=== PATIENT | female | born 2005 | race Caucasian/White ===

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

== ENCOUNTER 2025-04-12 01:35 | Emergency (ER) | payer MEDICAID ==
[~2025-04-12] VITALS: Ht 165.1 cm; Wt 56.2 kg
[~2025-04-12 01:35] MED LIST changes: +DOXY100T29 PO
--- NOTE | 2025-04-12 02:17 | Physician Documentation ---
HPI ~ General Chief Complaint: Tooth Problem Stated Complaint: ORAL PAIN Time Seen by MD: 02:16 Primary Medical Doctor: TERRIE AT [facility] IN [place] Mode of Arrival: POV History of Present Illness HPI Comment Patient presents to the emergency room with dental pain since tonight. Patient does see forging die sinker with braces however she has not been to a dentist in some time. Last time she was at a dentist that has for a cracked tooth on her right lower molar and she states they drilled a hole in it but then was told to come back to finish working on the tooth but she failed to follow up. She has had nothing for the pain Medication Reconciliation Allergies: Coded Allergies: No Known Allergies (Unverified , 04/12/25) Scheduled Amoxicillin Trihydrate* (Amoxicillin*), 1 CAP PO Q12H Doxycycline Monohydrate (Doxycycline Monohydrate), 1 TAB PO Q12H Ibuprofen* (Motrin*), 800 MG PO Q8H Scheduled PRN Acetaminophen (Tylenol Extra Strength), 2 TAB PO Q6H PRN PRN for pain or fever Miscellaneous Medications Home Med List (No Home Medications), (Reported) Past Medical History Past Medical History: *ENT* Past Surgical History: no surgical history Alcohol Use: None Drug Use: none Lives with: Family Lives In: Home Occupation: child Review of Systems ROS All review of systems negative except as per HPI Physical Exam Vital Signs: Temperature: 97.9, Source: Temporal, Heart Rate: 86, Respiratory Rate: 14, BP: 117/74, Pulse Oximetry: 98, Weight: 56.200 Oxygen Flow Rate: 0 Physical Exam General: Patient is awake, alert, oriented x4 in no acute distress Head: Normocephalic and atraumatic. Eyes: Conjunctival normal. EOMI. PERRL. ENT: Mucous membranes moist. Abscess noted to patient's right lower molar. Neck: Supple, trachea is midline. Chest: Clear to auscultation bilaterally without rales, rhonchi, or wheezes. There is no accessory muscle use or retractions. Cardiac: RRR without murmurs, gallops, or rubs. Procedures Procedures Incision and drainage: Status post informed verbal consent patient was anesthetized with 1 cc of lidocaine with epinephrine to the root of affected right lower molar. 11. Blade utilized to perform incision and drainage with purulence and blood expressed totaling a total of 0.5 cc. Patient tolerated procedure well without complication. Total time of procedure 5 minutes Progress Results/Orders Results/Orders Completed Orders - GREY VU MD Ibuprofen Tablet (Motrin Tablet) (04/12/25 02:20) Acetaminophen 325mg Tablet (Tylenol Tabl (04/12/25 02:20) Ondansetron Disint. Tablet (Zofran Odt T (04/12/25 02:20) Amoxicillin Capsule (Trimox Capsule) (04/12/25 02:20) Medications Received in ER Medications (Trade) Dose Ordered Sig/Lela Route PRN Reason Start Time Stop Time Status Last Admin Dose Admin (Motrin tablet) 400 mg ONCE ONCE PO 04/12/25 02:20 04/12/25 02:21 DC 04/12/25 02:35 400 MG (Tylenol tablet) 650 mg ONCE ONCE PO 04/12/25 02:20 04/12/25 02:21 DC 04/12/25 02:35 650 MG (Zofran ODT tablet) 4 mg ONCE ONCE PO 04/12/25 02:20 04/12/25 02:21 DC 04/12/25 02:34 4 MG (Trimox capsule) 500 mg ONCE ONCE PO 04/12/25 02:20 04/12/25 02:21 DC 04/12/25 02:34 500 MG Vital Signs 04/12/25 04/12/25 01:37 02:08 Temp 97.9 Pulse 86 Resp 16 14 B/P (MAP) 117/74 Pulse Ox 98 O2 Flow Rate 0 Medical Decision Making Findings Patient presented to the emergency room for evaluation of dental pain. Differentials include but are not limited to abscess, referred pain, herpangina, dental caries. Physical exam consistent with abscess and incision and drainage was performed without issue. The need to follow up with a dentist discussed. Departure Disposition: 01 HOME / SELF CARE / HOMELESS Impression: Primary Impression: Toothache Additional Impression: Dental abscess Condition: Stable Discharge Instructions: Dental Pain Additional Instructions: Call dentist tomorrow to arrange for follow up. Finish all antibiotics. Both ibuprofen and Tylenol may be taken together for pain. Referrals: NO PRIMARY CARE PROVIDER (PCP) Prescriptions Acetaminophen (Tylenol Extra Strength) 500 Mg Tablet 2 TAB PO Q6H PRN PRN for pain or fever for 3 Days, #30 TAB Prov: GREY VU MD 04/12/25 Ibuprofen* (Motrin*) 400 Mg Tablet 800 MG PO Q8H, #30 TAB Prov: GREY VU MD 04/12/25 Amoxicillin Trihydrate* (Amoxicillin*) 500 Mg Capsule 1 CAP PO Q12H for 10 Days, #20 CAP Prov: GREY VU MD 04/12/25 Education Educated: Patient Educated regarding: diagnosis, treatment, need for follow up Signature Scribe Signature: No scribe Attestation: The note accurately reflects work and decisions made by me.Grey Vu MD 04/12/25 02:33 GREY VU MD Apr 12, 2025 02:17
[2025-04-12] MEDS ORDERED: ACET-1025 PO (02:33)
[2025-04-12] MEDS ORDERED: AMOX500C2 PO (02:33)
[2025-04-12] MEDS ORDERED: IBUP-1984 PO (02:33)
[2025-04-12] MEDS: ondansetron 4mg rapidly disintigrating tab PO ONE (02:34)
[2025-04-12] MEDS: ibuprofen tablet 400 MG TABLET PO ONE (02:35)
[2025-04-12 02:49] VITALS: BP 112/64; PULSE 68; RESP 14; TEMP 97.9; O2SAT 99
== END 2025-04-12 02:51 | disposition home or self-care (01) ==
LOC: ER 01:36
DX: K04.7 Periapical abscess without sinus (principal); Z79.899 Other long term (current) drug therapy
CPT/HCPCS: 41800; 99284

== ENCOUNTER 2025-05-04 12:54 | Emergency (ER) | payer MEDICAID ==
[~2025-05-04] VITALS: Ht 165.1 cm; Wt 54.9 kg
[~2025-05-04 12:54] MED LIST changes: +IBUP-1984 PO
[2025-05-04 12:59] VITALS: BP 101/71; PULSE 87; RESP 16; TEMP 98; O2SAT 99
[2025-05-04] MEDS ORDERED: NAPR-56 PO (14:32)
--- NOTE | 2025-05-04 14:33 | Physician Documentation ---
History of Present Illness ~ Chief Complaint: Shoulder pain Stated Complaint: L SHOULDER PAIN Time Seen by MD: 14:13 OK to notify your PCP?: Yes Primary Medical Doctor: none Source: patient Mode of Arrival: POV Exam Limitations: no limitations HPI 20-year-old left-handed female with chief complaint left shoulder pain that started two weeks ago. The pain woke her up in the middle of the night. She states the pain has been constant since patient's pain is worse when she tries to lift her arm overhead. Pain is very localized to the lateral deltoid area. No prior shoulder injuries. No neck pain, Tetanus within 5 years?: Yes Medication Reconciliation Allergies: Coded Allergies: No Known Allergies (Unverified , 04/12/25) Scheduled Doxycycline Monohydrate (Doxycycline Monohydrate), 1 TAB PO Q12H Ibuprofen* (Motrin*), 800 MG PO Q8H Miscellaneous Medications Home Med List (No Home Medications), (Reported) Past Medical History Past Medical History: *ENT* Past Surgical History: no surgical history Alcohol Use: None Drug Use: none Lives with: Family Lives In: Home Occupation: child Review of Systems All Other Systems at this time: Reviewed and Negative Physical Exam Vital Signs: Temperature: 98.0, Source: Temporal, Heart Rate: 87, Respiratory Rate: 16, BP: 101/71, Pulse Oximetry: 99, Weight: 54.900 Oxygen Flow Rate: 0 Physical Exam GENERAL: Alert, no acute distress. HEENT: NCAT, EOMI, PERRL, moist oral mucosa. NECK: Supple, trachea midline. CARDIAC: Regular rate and rhythm, no murmurs, rubs, or gallops. PV: Equal distal pulses. No lower extremity edema, cap refill less than 2 seconds. RESPIRATORY: Equal breath sounds, clear to auscultation bilaterally, no respiratory distress. MUSCULOSKELETAL: NORMAL INSPECTION OF LEFT SHOULDER, TTP OVER LEFT LATERAL DELTOID. AROM OF SHOULDER IS LIMITED TO SHOULDER HEIGHT DUE TO PAIN. NEGATIVE DROP ARM TEST. NTTP OVER CERVICAL SPINOUS PROCESSES. NORMAL AROM. Normal gait. NEUROLOGICAL: Awake, alert, and oriented x 3. SKIN: Warm/dry, no pallor, no rash. PSYCH: Alert and appropriate. Affect congruent with mood. Speech is clear. Good eye contact. Progress Results/Orders Results/Orders Vital Signs 05/04/25 12:59 Temp 98.0 Pulse 87 Resp 16 B/P (MAP) 101/71 Pulse Ox 99 O2 Flow Rate 0 Medical Decision Making Differential Dx:Considerations: Include: AC separation, Adhesive capsulitis, arthritis, Bicipital tendonitis, Calcific tendonitis, Cervical disc disease, Contusion, Dislocation, Fracture: Humerus, Fracture: Scapula, Fracture: Clavicle, Gallbladder Disease, Hematoma, Impingement syndrome, Myocardial infarction, Neurovascular Injury, Rotator cuff injury, SC dislocation, Sprain, Subacromial bursitis, other Departure Time of Disposition: 14:30 Disposition: 01 HOME / SELF CARE / HOMELESS Impression: Primary Impression: Shoulder pain Qualified Codes: M25.512 - Pain in left shoulder Condition: Stable Discharge Instructions: Shoulder Pain, [id number] Additional Instructions: I SUSPECT YOUR PAIN IS DUE TO TENDINITIS OR BURSITIS THESE WOULD BE TREATED BOTH WITH ANTI-INFLAMMATORY MEDICATIONS AND GRADUAL ACTIVE RANGE MOTION EXERCISES, I DO NOT RECOMMEND THAT YOU WEAR A SLING OR IMMOBILIZER ARMS SINCE THAT CAN LEAD TO SOMETHING CALLED ADHESIVE CAPSULITIS OR FROZEN SHOULDER SYNDROME. GIVEN THE LACK OF INJURY AND YOUR AGE WOULD BE UNLIKELY THAT THERE BE ANY INJURY GOING ON TEAR ROTATOR CUFF MUSCLE. FOLLOW UP WITH YOUR PRIMARY CARE PROVIDER IF SYMPTOMS DO NOT IMPROVE FOR REFERRAL TO PHYSICAL THERAPY. Referrals: NO PRIMARY CARE PROVIDER (PCP) Prescriptions Naproxen (Naproxen) 500 Mg Tablet 1 TAB PO Q12H, #60 TAB Prov: PORSCHE BALDERRAMA 05/04/25 Education Educated: Patient Educated regarding: diagnosis, treatment, need for follow up Signature Scribe Signature: X Attestation: PORSCHE ROGERS May 04, 2025 14:33
== END 2025-05-04 14:42 | disposition home or self-care (01) ==
LOC: ER 12:55
DX: M25.512 Pain in left shoulder (principal)
CPT/HCPCS: 99282